=== PATIENT | female | born 1965 | race Caucasian/White ===

== ENCOUNTER 2018-01-06 10:38 | Emergency (ER) | payer OTHER ==
[2018-01-06 10:54] VITALS: BP 131/94
--- NOTE | 2018-01-06 11:13 | UC ---
Respiratory Complaint HPI - HPI Summary HPI Summary: Pt presents with c/o cough, wheezing and chest congestion X 3-4 days. Pt states that she "always gets bronchitis" and knows that she "needs an xray" Pt reports that she had bronchitis 1-2 months ago. - History of Current Complaint Chief Complaint: UCRespiratory Stated Complaint: CHEST CONGESTION, COUGH Time Seen by Provider: 01/06/18 11:08 Hx Obtained From: Patient Hx Last Menstrual Period: n/a ?: No Onset/Duration: Gradual Onset, Lasting Days, Still Present Timing: Constant Severity Initially: Mild Severity Currently: Mild Pain Intensity: 4 Character: Cough: Nonproductive Aggravating Factors: Exertion, Deep Breaths, Recumbent Position Alleviating Factors: Nothing Associated Signs And Symptoms: Positive: Wheezing, URI, Nasal Congestion - Risk Factors Pulmonary Embolism Risk Factors: Smoking Cardiac Risk Factors: Smoking Pseudomonas Risk Factors: Negative Tuberculosis Risk Factors: Smoking - Allergies/Home Medications Allergies/Adverse Reactions: Allergies Allergy/AdvReac Type Severity Reaction Status Date / Time codeine AdvReac Intermediate Vomiting Verified 01/06/18 10:55 Penicillins AdvReac Intermediate Nausea Verified 01/06/18 10:55 seasonal Allergy Congestion Uncoded 01/09/17 14:30 Home Medications: Home Medications Albuterol 2.5MG/3ML (0.083%)* [Ventolin 2.5 MG/3 ML NEB.PRAKASH*] 2.5 mg INH Q4H 09/18 [History Confirmed 01/06/18] PMH/Surg Hx/FS Hx/Imm Hx Previously Healthy: Yes Respiratory History: Bronchitis - Surgical History Surgical History: Yes Surgery Procedure, Year, and Place: APPENDECTOMY; 1983; CYST REMOVED FROM [facility]ARY , ; TUBAL LIGATION, 1989. double carpal tunnel repair 09/19/14 - Family History Known Family History: Positive: Cardiac Disease, Hypertension, Other - RA Negative: Diabetes, Respiratory Disease - Social History Occupation: Employed Full-time Alcohol Use: None Alcohol Amount: 6 PER MONTH Substance Use Type: Excessive Caffeine Substance Use Comment - Amount & Last Used: coffee 6 cups /day Smoking Status (MU): Heavy Every Day Tobacco Smoker Type: Cigarettes Amount Used/How Often: 1/2 PPD Length of Time of Smoking/Using Tobacco: 38 Years Have You Smoked in the Last Year: Yes Household Exposure Type: Cigarettes - Immunization History Most Recent Influenza Vaccination: no Vaccination Up to Date: No Review of Systems Constitutional: Fatigue Skin: Negative Eyes: Negative ENT: Negative Respiratory: Shortness Of Breath, Cough Cardiovascular: Negative Gastrointestinal: Negative Genitourinary: Negative Motor: Negative Neurovascular: Negative Musculoskeletal: Negative Neurological: Negative Psychological: Negative Is Patient Immunocompromised?: No All Other Systems Reviewed And Are Negative: Yes Physical Exam Triage Information Reviewed: Yes Appearance: Well-Appearing Vital Signs: Initial Vital Signs Temp 98.5 F 01/06/18 10:49 Pulse 78 01/06/18 10:49 Resp 18 01/06/18 10:49 BP 131/94 01/06/18 10:49 Pulse Ox 99 01/06/18 10:49 Vital Signs Reviewed: Yes Eye Exam: Normal ENT Exam: Normal ENT: Positive: Hearing grossly normal Dental Exam: Normal Neck exam: Normal Respiratory: Positive: Wheezing Cardiovascular Exam: Normal Musculoskeletal Exam: Normal Neurological Exam: Normal Psychological Exam: Normal Skin Exam: Normal UC Diagnostic Evaluation - Laboratory O2 Sat by Pulse Oximetry: 99 Respiratory Course/Dx - Course Course Of Treatment: I disucussed [facility] pt that bronchitis may be viral, pt insisted on antibiotics - Differential Dx/Diagnosis Differential Diagnosis/HQI/PQRI: Bronchitis, Other - URI Provider Diagnoses: Bronchitis Discharge - Sign-Out/Discharge Documenting (check all that apply): Patient Departure All imaging exams completed and their final reports reviewed: No Studies - Discharge Plan Condition: Stable Disposition: HOME Prescriptions: Azithromycin TAB* [Zithromax TAB (Z-FLORESITA) 250 mg #6 tabs] 2 tab PO .TODAY, THEN 1 DAILY #1 floresita predniSONE TAB* [Deltasone 20 MG TAB*] 20 mg PO DAILY #3 tab Patient Education Materials: Acute Bronchitis (ED) Referrals: Sonal Loving MD [Primary Care Provider] - If Needed Additional Instructions: Please continue to use the nebulizer and inhaler as directed in previous prescription. If your condition worsens, then please seek care at the closest emergency room. - Billing Disposition and Condition Condition: STABLE Disposition: Home
== END 2018-01-06 11:42 | disposition home or self-care (01) ==
LOC: UCCORT 10:38
DX: J40 Bronchitis, not specified as acute or chronic (principal); Z88.0 Allergy status to penicillin; Z88.1 Allergy status to other antibiotic agents; F17.210 Nicotine dependence, cigarettes, uncomplicated
CPT/HCPCS: 99212; G0463

== ENCOUNTER 2019-04-05 07:02 | Emergency (ER) | payer BC, OTHER ==
--- OUTSIDE RECORDS SUMMARY | 2019-04-05 07:10 | XMS REPORT | Summary of Care ---
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; [address] Lupus (HCC); [place], [place] [id number] [place] [address] Fibromyalgia, secondary [phone] Allergies Active Allergy Reactions Severity Noted Date Comments Environmental Respiratory Reaction 12/23/2013 Unsure of allergies Penicillins GI Reaction 12/02/2014 Upset stomach documented as of this encounter (statuses as of 03/12/2019) Medications Medication Sig Dispensed Refills Start End Date Status Date hydroxychloroquine Take 2 Tabs 60 Tab 2 Active (PLAQUENIL) 200 MG by mouth 5 Oral Tab DAILY. albuterol (PROVENTIL, 3 mL by 125 mg 5 Active VENTOLIN) (2.5 MG/3ML) Inhalation-SV 7 0.083% Inhalation Nebu N route EVERY SolnIndications: SIX HOURS Wheezing NEEDED (wheezing). RA ALLERGY RELIEF 180 take 1 tablet 30 Tab 3 Active MG Oral Tab daily 8 ibuprofen (MOTRIN) 600 take 1 tablet 30 Tab 1 Active MG Oral daily if 9 TabIndications: needed for Myalgia severe pain SPIRIVA RESPIMAT 2.5 inhale 2 4 g 11 03/19/201 Active MCG/ACT Inhalation puffs daily 9 Aero SolnIndications: Chronic obstructive pulmonary disease, unspecified COPD type (HCC) levothyroxine take 1 tablet 30 Tab 0 Active (SYNTHROID) 125 MCG by mouth once 9 Oral TabIndications: daily BEFORE Acquired BREAKFAST hypothyroidism fluticasone (FLONASE) instill 2 16 g 5 Active 50 MCG/ACT Nasal sprays IN 9 Suspension NOSE DAILY VENTOLIN HFA 108 (90 inhale 2 36 g 11 Active Base) MCG/ACT puffs every 4 9 Inhalation Aero hours if SolnIndications: needed for Chronic obstructive wheezing pulmonary disease, unspecified COPD type (HCC), Wheezing duloxetine (CYMBALTA) Take 1 Cap by 30 Cap 3 03/12/20 Discontinued 20 MG Oral CAPSULE mouth DAILY. 9 19 (Side Effect) ENTERIC COATED PARTICLESIndications: Fibromyalgia, secondary, Anxiety nicotine transdermal Place 1 Patch 30 Patch 5 03/12/20 Discontinued patch-daily (NICODERM onto skin 9 19 (Patient CQ) 7 MG/24HR DAILY. stopped the Transdermal PATCH 24 medication) HRIndications: Tobacco use documented as of this encounter (statuses as of 03/12/2019) Active Problems Problem Noted Date Fibromyalgia, secondary 04/13/2018 COPD (chronic obstructive pulmonary disease) 03/17/2017 Lentigo 08/04/2014 Smoking 08/04/2014 Tubular adenoma of colon 05/04/2014 Overview: repeat in 5 years Hypothyroidism DDD (degenerative disc disease), lumbar Overview: MRI 08/2013 Lupus Overview: Dr. Sofía Jaime documented as of this encounter (statuses as of 03/12/2019) Immunizations Name Administration Dates Next Due Influenza (IM) Preservative Free 12/25/2018, 04/15/2016, 02/12/2015 Influenza Vaccine Whole 02/05/2014 PNEUMOCOCCAL POLYSACCHARIDE VACCINE 12/25/2018, 05/29/2017 TDAP Vaccine 04/15/2016 documented as of this encounter Social History Tobacco Use Types Packs/Day Years Used Date Current Every Day Smoker 0.5 40 Smokeless Tobacco: Never Used Comments: weaning down, trying to quit Alcohol Use Drinks/Week oz/Week Comments No 0 Standard drinks or equivalent 0.0 Sex Assigned at Date Recorded Not on file Job Start Date Occupation Industry Not on file Not on file Not on file Travel History Travel Start Travel End No recent travel history available. documented as of this encounter Last Filed Vital Signs Vital Sign Reading Time Taken Comments Blood Pressure 140/76 03/12/2019 2:05 PM EST Pulse 82 03/12/2019 2:05 PM EST Temperature - - Respiratory Rate - - Oxygen Saturation 98% 03/12/2019 2:05 PM EST Inhaled Oxygen Concentration - - Weight 68.5 kg (151 lb) 03/12/2019 2:05 PM EST Height 157.5 cm (5' 2") 03/12/2019 2:05 PM EST Body Mass Index 27.62 03/12/2019 2:05 PM EST documented in this encounter Patient Instructions Patient InstructionsSonal Loving MD - 03/12/2019 2:00 PM ESTGlad you are doing ok at this time. Good job quitting smoking. You can stay off Duloxetine. Follow up next summer for a physical exam Stay healthy documented in this encounter Progress Notes Sonal Loving MD - 03/12/2019 2:00 PM EST Nursing Notes: Carey Lizama LPN 03/12/2019 2:15 PM Signed Chief Complaint Patient presents with Check Up Youth Teacher: [facility] Endocrinogist: Dr Sandoval--appointment 03/25/19 Pulmonolotist: Dr Wood's BREAKFAST AND ROOM ATTENDANT, Tae--appointment next week, plans CT Lyme doctor: Tae JAMES--has upcoming appointment. PATIENT: Keesha Kay : 1965 DATE OF SERVICE: 03/12/2019 SUBJECTIVE: Keesha Kay is a 53-y.o. female who presents for follow up of of anxiety. She had to finally stop duloxetine 3 weeks ago for diarrhea and abdominal pain. She feels ok at this time and does not want to try anything new. Her stressors are her son, who has not been around lately, and her who is newly oxygen dependent. She stopped smoking since last visit. Last seen 02/08/19. Per last visit: We had to lower her dose of Duloxetine last visit due to diarrhea. I previously prescribed Duloxetine. She quit smoking for 6 months. Her anxiety picked up 3 months ago. She started smoking again 1 week prior, 1ppd. Plan last visit: Patient liked duloxetine, except for the diarrhea. She would like to try a lower dose rather than anew med. She is here for recheck of this. She would also like the lowest dose nicoderm patch to quit smoking again. We called to obtain her last note and laboratory tests from Dr Sandoval. She sees Dr Sandoval for her thyroid. He gave her a med for thyroid and anxiety, but stopped it. No help. Last vist was within 3 months She complained last visit of psychomotor agitation. Onset was approximately several months ago, gradually worsening since that time. She denies current suicidal and homicidal plan or intent. Possible organic causes contributing are: Lupus, prior anxiety, fibromyalgia. , thyroid Previous treatment includes Bupropion Hydrochloride/ Wellbutrin, Escitalopram Oxalate/ Lexapro. She complains of the following side effects from the treatment: Diarrhea. Her laboratory tests in September with Dr Sandoval revealed normal TSH and FT4, negative ABRAM, normal CMP Lab Results Component Value Date TSH 5.02 (H) 04/13/2018 Lab Results Component Value Date NA 141 04/13/2018 K 4.1 04/13/2018 CL 107 04/13/2018 CO2 28 04/13/2018 GLUCOSE 83 04/13/2018 BUN 12 04/13/2018 CREATININE 0.9 04/13/2018 CALCIUM 10.0 04/13/2018 EGFR >60 04/13/2018 Lab Results Component Value Date WBC 5.6 04/15/2016 HGB 15.0 04/15/2016 HCT 44.7 04/15/2016 PLAT 230 04/15/2016 Past Medical History: Diagnosis Date Carpal tunnel syndrome Dr Damon COPD (chronic obstructive pulmonary disease) ([facility]) 03/17/2017 DDD (degenerative disc disease), lumbar MRI 08/2013 Environmental allergies fall, winter Hypothyroidism Lupus ([facility]) 2012 Dr. Sofía Jaime Lupus ([facility]) Dr. 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 fluticasone (FLONASE) 50 MCG/ACT Nasal Suspension instill 2 sprays IN NOSE DAILY hydroxychloroquine (PLAQUENIL) 200 MG Oral Tab Take 2 Tabs by mouth DAILY. ibuprofen (MOTRIN) 600 MG Oral Tab take 1 tablet daily if needed for severe pain levothyroxine (SYNTHROID) 125 MCG Oral Tab take 1 tablet by mouth once daily BEFORE BREAKFAST RA ALLERGY RELIEF 180 MG Oral Tab take 1 tablet daily SPIRIVA RESPIMAT 2.5 MCG/ACT Inhalation Aero Soln inhale 2 puffs daily VENTOLIN HFA 108 (90 Base) MCG/ACT Inhalation Aero Soln inhale 2 puffs every 4 hours if needed for wheezing No current facility-administered medications for this visit. Allergies Allergen Reactions Environmental Respiratory Reaction Unsure of allergies Penicillins GI Reaction Upset stomach Social History Socioeconomic History Marital status: Spouse name: Not on file Number of children: Not on file Years of education: Not on file Highest education level: Not on file Occupational History Not on file Social Needs Financial resource strain: Not on file Food insecurity: Worry: Not on file Inability: Not on file Transportation needs: Medical: Not on file Non-medical: Not on file Tobacco Use Smoking status: Current Every Day Smoker Packs/day: 0.50 Years: 40.00 Pack years: 20.00 Smokeless tobacco: Never Used Tobacco comment: weaning down, trying to quit Substance and Sexual Activity Alcohol use: No Alcohol/week: 0.0 standard drinks Drug use: No Sexual activity: Never Lifestyle Physical activity: Days per week: Not on file Minutes per session: Not on file Stress: Not on file Relationships Social connections: Talks on phone: Not on file Gets together: Not on file Attends mormon service: Not on file Active member of club or organization: Not on file Attends meetings of clubs or organizations: Not on file Relationship status: Not on file Intimate partner violence: Fear of current or ex partner: Not on file Emotionally abused: Not on file Physically abused: Not on file Forced sexual activity: Not on file Other Topics Concern Back Care Not Asked Bike Helmet Not Asked Blood Transfusions Not Asked Caffeine Concern Not Asked Exercise Not Asked Hobby Hazards Not Asked International Travel Not Asked Service Not Asked Occupational Exposure Not Asked Seat Belt Not Asked Self-Exams Not Asked Sleep Concern Not Asked Special Diet Not Asked Stress Concern Not Asked Weight Concern Not Asked Social History Narrative 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 REVIEW OF SYSTEMS: CONSTITUTIONAL: negative for fevers and chills. CARDIOVASCULAR: negative for chest pain. Respiratory: denies cough, shortness of breath GASTROINTESTINAL: negative for abdominal pain and no diarrhea now. improved anxiety. No suicidal ideation OBJECTIVE: BP 140/76 (BP Location: Left arm, Patient Position: Sitting) | Pulse 82 | Ht 5 ' 2" (1.575 m) | Wt151 lb (68.5 kg) | SpO2 98% | BMI 27.62 kg/m Physical Examination: General appearance - alert, well appearing, and in no distress Mental status - alert, oriented to person, place, and time, normal mood, behavior, speech, dress, motor activity, and thought processes Eyes - pupils equal sclera anicteric Neck - supple, no cervical or supraclavicular adenopathy, carotids upstroke normal bilaterally, no bruits, thyroid exam: thyroid is normal in size without nodules or tenderness, no neck masses palpated. Chest/Lungs - clear to auscultation, no wheezes, rales or rhonchi, symmetric air entry, good aeration Heart - normal rate, regular rhythm, normal S1, S2, no murmurs, rubs, clicks or gallops Abdomen - soft, non tender on palpation, nondistended, no masses or hepatosplenomegaly, bowel soundsnormal, normal to percussion, no guarding or rebound. No costervertebral angle tenderness Neurological - alert, oriented, normal speech, no gross focal findings or movement disorder noted Extremities - dorsalis pedis pulses normal, no pedal edema, no clubbing or cyanosis ASSESSMENT/ PLAN: ICD-9-CM ICD-10-CM 1. Anxiety 300.00 F41.9 2. 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 Lupus (HCC) 710.0 M32.9 4. Fibromyalgia, secondary 729.1 M79.7 Patient Instructions Glad you are doing ok at this time. Good job quitting smoking. You can stay off Duloxetine. Follow up next summer for a physical exam Stay healthy Author: Sonal Loving MD 03/12/2019 17:05 documented in this encounter Plan of Treatment Health Maintenance Due Date Last Done Comments ZOSTER IMMUNIZATION SERIES 2014 (1 of 2) MAMMOGRAM (SCREENING) 10/16/2018 10/16/2017, 03/15/2016, 09/12/2014, Additional history exists DIABETES SCREENING 04/13/2019 04/13/2018, 12/05/2017, 07/28/2015, Additional history exists Colonoscopy 06/10/2019 06/09/2014, 06/09/2014, 06/09/2014 DEPRESSION SCREENING 02/09/2020 02/08/2019 PAP SMEAR 06/26/2020 06/26/2017, 06/21/2016, 06/21/2016, Additional history exists LIPID DISORDER SCREENING 12/05/2022 12/05/2017, 10/02/2014 INFLUENZA VACCINE Completed 12/25/2018, 04/15/2016, 02/12/2015, Additional history exists PNEUMOCOCCAL 0-64 YRS Completed 12/25/2018, 05/29/2017 HPV IMMUNIZATION SERIES Aged Out No longer eligible based on patient's age to complete this topic MENINGOCOCCAL VACCINE IMM Aged Out No longer eligible based on patient's age to complete this topic documented as of this encounter Goals Goal Patient Goal Associated Recent Patient-Stated? Author Type Problems Progress Smoking COPD No Pro Loving MD Note: This is an individualized treatment (COPD) goal for Keesha Rahul: Quit smoking immediately! Your provider has information and resources that may help you to quit. Lifestyle - Current Smoker Lifestyle Smoking No Marely Mosley MD Note: Smoking Cessation Plan Discussed smoking cessation with patient. Patient readiness to quit:yes Discussed smoking cessation plan according to AHRQ guidelines:counseled patient on the risks of tobacco use and advised patient to quit and offered support My Quit Plan: My quit date is set for Notify my friends, family, and co-workers about decision to quit. Will ask for their support and understanding Remove tobacco products from my environment. I will ask people not to smoke around me or in my home. I will anticipate challenges at the beginning and will try not to be discouraged. To remember the benefits of quitting such as improved health, feeling better about myself, saving money, etc. Reducing stressors and avoiding triggers are essential keys to my success Finding ways to distract myself when I have the urge to smoke such as taking a walk, reading, playing a board game, putting together a puzzle, etc. Taking medications as my healthcare provider has advised to help alleviate the urge to smoke. If I am unable to take the medication, I will discuss further with my healthcare provider. Recognize reasons for relapse in my past attempts. What did and did not work for me Consider connecting with group, individual, or telephone counseling Keep immunizations current Lifestyle No Sonal Loving MD Note: This is an individualized lifestyle goal for Keesha Kay: Please be sure to keep up-to-date on recommended immunizations. For example, this would include a yearly influenza vaccine. Immunization status can be seen by looking at the Health Maintenance sections of your [facility], Plan of Care, and any After Visit Summaries. Take all prescribed medications as Self-management No Sonal Loving MD directed Note: This is an individualized self-management goal for Keesha Kay: Please take all prescribed medications as directed. 1. Do not skip doses. If you cannot afford your medications, talk with your doctor. 2. Use a pill reminder system such as a pill box if needed. Your pharmacist can help you with this. 3. Contact your Pharmacy 5 days before your medication runs out. If you cannot take your medications for any reasons, talk with your doctor. 4. Please bring all of your medication bottles and inhalers (or a list of all your medications/inhalers) with you to every visit. Potential barriers to meeting all of your care plan goals will continue to be addressed on an ongoing basis. 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
--- OUTSIDE RECORDS SUMMARY | 2019-04-05 07:10 | XMS REPORT | Summary of Care ---
:1965 Author Organization [facility] Address [address] [place] [address] Care Team Providers Name Role Phone Sonal Loving MD Primary Care Provider Reason for Visit Reason Comments Follow-up Encounter Details Date Type Department Care Team Description 03/14/2019 Office Visit [facility] Rheumatology Fe Gore MD Positive ABRAM (antinuclear antibody) (Primary Dx); [address] Fibromyalgia; [place] [address] [facility] Floor High risk medication use [phone] [place] [address] Allergies No Known Allergiesdocumented as of this encounter (statuses as of 03/14/2019) Medications Medication Sig Dispensed Refills Start Date End Date Status RA ALLERGY RELIEF 180 MG 0 09/28/2015 Active tablet levothyroxine Take 100 mcg by 0 04/15/2016 Active (SYNTHROID, LEVOTHROID) mouth 100 MCG tablet albuterol (PROVENTIL) Take by 0 Active (2.5 MG/3ML) 0.083% nebulization nebulizer solution daily SPIRIVA RESPIMAT 2.5 1 09/27/2017 Active MCG/ACT AERS inhalation spray ibuprofen (ADVIL,MOTRIN) Take 600 mg by 0 05/29/2017 Active 600 MG tablet mouth methotrexate 2.5 MG take 4 tablets 16 tablet 5 04/05/2018 Active tabletIndications: every week Fibromyalgia hydroxychloroquine take 1 tablet by 60 tablet 11 07/16/2018 Active (PLAQUENIL) 200 MG mouth twice a day tabletIndications: Connective tissue disease hydroxychloroquine Take 1 tablet by 60 tablet 11 09/14/2018 Active (PLAQUENIL) 200 MG mouth Two Times 0 tablet Daily documented as of this encounter (statuses as of 03/14/2019) Active Problems Problem Noted Date High risk medication use 05/17/2013 Fibromyalgia 05/17/2013 Joint pain 04/27/2012 Positive ABRAM (antinuclear antibody) 03/22/2012 Hypothyroidism documented as of this encounter (statuses as of 03/14/2019) Social History Tobacco Use Types Packs/Day Years Used Date Current Every Day Smoker Cigarettes 1 30 Smokeless Tobacco: Never Used Alcohol Use Drinks/Week oz/Week Comments No Sex Assigned at Date Recorded Not on file Job Start Date Occupation Industry Not on file Not on file Not on file Travel History Travel Start Travel End No recent travel history available. documented as of this encounter Last Filed Vital Signs Vital Sign Reading Time Taken Comments Blood Pressure 111/67 03/14/2019 12:53 PM EST Pulse 82 03/14/2019 12:53 PM EST Temperature 36.9 03/14/2019 12:53 PM EST C (98.5 F) Respiratory Rate 18 03/14/2019 12:53 PM EST Oxygen Saturation 98% 03/14/2019 12:53 PM EST Inhaled Oxygen Concentration - - Weight 69.9 kg (154 lb 3.2 oz) 03/14/2019 12:53 PM EST Height - - Body Mass Index 28.2 09/14/2018 12:24 PM EDT documented in this encounter Progress Notes Fe Gore MD - 03/14/2019 1:00 PM EST Subjective: Patient ID: Keesha Kay is a 53 y.o. female. HPI This is a 53-year-old white female with history of hypothyroidism, positive ABRAM , undifferentiated connective tissue disease, COPD, smoker came in for follow up. I first time saw her on 03/22/2012, at which time she was referred by Dr. Sandhu for positive ABRAM Homo 1:160, nucleolar pattern 1:160. The patient was diagnosed with hyperthyroidism many years ago and had radiation therapy and became hypothyroid, on levothyroxine 100 mcg daily. She always has fatigue. For the past few months or so, she noticed that the fingers and toes are tingling and radiating up to elbows and knee levels. She does have difficulty holding heavy objects and dropping things. She follow up with neurologist Dr. Myrna Gusman. She was diagnosed with carpal tunnel syndrome. She had 1 very small skin rash, about 2-3 mm, on the anterior left shoulder. She said the rash has been there for many years. They are red, but not itchy and painful. Denies photosensitivity, oral ulcers, or alopecia. About 1 month ago, she had 1 episode of chest pain lasting only 2-3 minutes and resolved. Because she is a chronic smoker, she does have chronic cough and shortness of breath. Denies abdominal pain, nausea, vomiting, diarrhea, constipation. No dysuria or hematuria. For the past 2 years or so,she had only 2 menstrual periods and she does have hot flashes. Denies Raynaud's, dry mouth, dry eyes. No chronic headaches. Her sleep is disturbed because the hands and legs are achy. Denies depression, anxiety, psychiatric problems. Denies family history of lupus or other autoimmune disease. On 04/26/2012, she was almost tearing in the office. She has a lot of stress on going. Her isdisabled and out of work. Her daughter is in and out of hospital with illness. She drinks about 8 cups coffee everyday. She barely had good night sleep. However, she denies depression and refused to see psychiatry or therapist. She said because of her high level of stress, she is not able to quit smoking. I had long discussion with the patient. I recommended Naproxen as needed for joints pain and Plaquenil 200mg bid. Also recommend her to neurologist to rule out neuropathy. On 06/14/2012, she said she had one episode of confusion after took 2 doses of Naproxen. She was not sure where she suppose to drive. She was scared and discontinued. I am not sure it was the side effect of Naproxen but agreed to hold off the medication. She did started Plaquenil 200mg bid and tolerated OK. Not much improvement yet. She has appointment with Neurologist in a few weeks. She might need EMG/NCS and/or MRI of brain. But I defer the decision to neurologist. She was cutting down the coffee intake to 2 cups a day. Her sleeps were little bit better. She had history of right side abdominal pain in 2011 which lasted about 4-5 months. She went to hospital and had all work up but there was no clear diagnosis to explain her abdominal pain. No headache. Her tingling of arms were unchanged. No skin rash, oral ulcer, chest pain, alopecia. On 09/13/2012, she said her symptoms were much better. Less fatigue. She could get of bed in the morning and go to work. She saw neurologist Dr. Myrna Gusman one month ago and had EMG which suspect carpal tunnel syndrome. MRI of neck suspected bulging disc at C4-C5. MRI of marvin showed a cyst but not concerning according to Dr. Kee. About one week ago, she had feet numbness. She will go see Dr. Gusman again. She had right forearm hyperpigmentation for 20 years or more. No raised, painful or itchy. She just noticed another hyperpigmentation rash which was quarter size on right breast, not painful or itchy. It looked like morphea to me. She did see director pharmacy services but did not have clear diagnosis. On 03/15/2013, she came in for follow up. She was doing quite well during the summer. However, since January 2013 she started noticing pain mainly on the right buttock and radiating down to the leg and the knees and toes. The pain could be everyday and there was tenderness on the right side buttock.I suspected pisiform syndrome with sciatic pain. I printed out home exercise. Other than that she also noticed the right forearm hyperpigmentation seemed to get worse. She had some skin rashes on and off which was itchy and her skin was dry. No oral ulcers. On 04/18/2013, she came in for urgent visit for diffused body pain since last visit. She was in tearsin the office. She said her body hurt all over the place. There were fibromyalgia tenderness . She continued smoking cigarettes. I suggested to quit smoking. Checked vitamin D level. Suspected connective tissue disease flare up. Try low dose prednisone 10mg bid and taper to half dose every week as tolerated. Continue Plaquenil 200mg bid. She admitted stressful situation at home. On 05/17/2013, she came in for follow up. She still has diffuse body pain but seems less fibromyalgiatender points on exam. She tried prednisone 10 mg, but she developed anxiety, angry and insomnia. She could not tolerate and had to stop it. Vitamin D level was normal. She continued the Plaquenil 200 mg twice a day. I discussed with her about her situation. She might have secondary fibromyalgiadue to her connective tissue disease. Since she is not able to tolerate even low-dose prednisone, we will try different approach. Discussed about the methotrexate and gabapentin. We will try gabapentin 100 mg at bedtime first. Side effects explained in detail. She also developed right upper quadrant abdominal pain which is sharp, persistent / not associated with food, breathing or bowel movement. She had similar episodes in the past and had extensive GI workups which were all unremarkable. On 09/12/2013, she came in for follow up. She had skin biopsy of right forearm hyperpigment skin lesion which was nonspecific lesion according to Dr. Sandhu. She was also referred to physical therapy for right buttock pain and leg pain. Suspected pisiformis syndrome. Legs numbness was better but she still have a lot of diffused body pain, right buttock pain. She discontinued Gabapentin and Meloxicam.She wanted to try ibuprofen 800mg for pain, which I E-prescribed. Continued Plaquenil 200mg bid. On 04/18/2014, she came in for follow up. She continued to have back pain and GI upset. Her right forearm hyperpigmentation which was biopsy by Dr. Sandhu. However she switched PCP. The biopsy report was still pending. She had EGD and was found to have small intestine was enlarged. Otherwise she tolerated Plaquenil 200mg bid. On 10/30/2014, she came in for follow up. Right arm skin biopsy showed hyperpigmentation but I do nothave those report. She switched primary care doctor to Dr. Marely Mosley. Just had labs done acouple of weeks ago. She felt fatigue, but not much of joints pain or body pain. She just had both wrists carpal tunnel release surgery about 6 weeks ago. recovered well. Continued Plaquenil 200mg bid. On 10/01/2015, she came in for follow up. Overall she felt okay with Plaquenil 200mg bid. Still had sore of hands. Other joints were normal. Still have hyperpigmentation of right forearm. She had palpation of heart. She was recommended Lexapro. On 04/07/2016, she came in for follow up. She was doing well on Plaquenil 200mg bid. Still have sore and numbness of hands and feet. This seems often happened during the winter time. No Raynaud's. She had neurological workup in the past but no significant findings. Since 12/2015, she felt palpitation. Had cardiac workup which was normal. Then she tried anti-anxiety medications which had side effects. She fatigue, anxiety. 3 weeks ago, she was found to have too high dose thyroid medications. Dosage was decreased but she was still not feel better. On 10/06/2016, the patient came in for follow up. Overall, the patient was really doing well on Plaquenil 200 mg twice a day. She was wondering whether she can taper down the dose. I suggested they could try 200 mg daily during the summertime. She was referred to an footwear machinery instructor for hypothyroidism. After the levothyroxine decreased to 100 mcg daily, she felt much better. Not anxious and no agitation. Overall, she was happy with her current status. No new skin rash except the right forearm hyperpigmentation unchanged. No arthritis or ulcers. On 04/13/2017, the patient came in for follow up. The patient continued to have diffuse body pain andtenderness and joint pains in and hands and feet. For the past half year, she had bronchitis 7-8 times, often had cough, shortness of breath, and wheezing. She was told she had severe COPD. She is and active smoker, but was also was exposed to chemicals for 27 years. She has not be referred to a metal spinner yet, has not done a CT of the chest and pulmonary function test. She has followed up with thyroid doctor, footwear machinery instructor, who is leaving the practice. She needs to find a new one. The last time, she was told the thyroid function was normal. She continues hydroxychloroquine 200 mg twice a day. On 10/12/2017, the patient came in for follow up. She continues hydroxychloroquine 200 mg twice a day. But she continued to have fatigue, diffused joints pain at toes, knees, fingers, arms. She was upset. Discussed about DMARDs and biologics. She agreed with Methotrexate 10mg weekly and folic acid 1mg daily. On 03/09/2018, the patient came in for follow up. She tried Methotrexate 10mg weekly and folic acid 1mg daily for 6 months, she did not notice improvement. In fact, she felt more fatigue, dry skin. Shealso had increased SOB on exertions. She had COPD and also smoker. She had difficulty quitting smoking. She was going to see her PCP office soon for that. Lab in 10/2017, free T4 normal but TSH mild elevated 5.98. She was on Levothyroxine 110mcg daily. She might need higher dose of thyroid medication or see footwear machinery instructor because her previous footwear machinery instructor left. She will discuss with her PCP office. She continues hydroxychloroquine 200 mg twice a day and ibuprofen 800mg as needed. No synovitis onexam. On 09/14/2018, the patient came in for follow up. Repeated TSH 12.8 in 03/2018. I called her. Suggested to increase Levothyroxine to 125mcg. She called her PCP and got that. After 2 days, she felt much better. She saw new footwear machinery instructor who agreed with that. Summer time she felt good. I suggested to try Plaquenil 400mg/200mg every other day based on her body weight. She is going to see eye doctor in the summer. She quit smoking on 08/07/2018, gained some weight. Discussed about Paleo diet, exercise and lose weight. On 03/14/2019, the patient came in for follow up. She overall stable on Plaquenil 400mg/200mg every other day. After she quit smoke in 08/2018 and gained 35-40lbs. She continued to follow up with footwear machinery instructor. Review of Systems Per HPI. Review of complete ROS is negative. Past Medical History: Diagnosis Date Hypothyroidism Past Surgical History: Procedure Laterality Date APPENDECTOMY Family History Problem Relation Age of Onset Heart failure Mother Social History Tobacco Use Smoking status: Current Every Day Smoker Packs/day: 1.00 Years: 30.00 Pack years: 30.00 Types: Cigarettes Smokeless tobacco: Never Used Substance Use Topics Alcohol use: No Drug use: Yes Comment: ramo No Known Allergies Current Outpatient Medications Medication Sig Dispense Refill albuterol (PROVENTIL) (2.5 MG/3ML) 0.083% nebulizer solution Take by nebulization daily hydroxychloroquine (PLAQUENIL) 200 MG tablet take 1 tablet by mouth twice a day 60 tablet 11 hydroxychloroquine (PLAQUENIL) 200 MG tablet Take 1 tablet by mouth Two Times Daily 60 [id number] ibuprofen (ADVIL,MOTRIN) 600 MG tablet Take 600 mg by mouth levothyroxine (SYNTHROID, LEVOTHROID) 100 MCG tablet Take 100 mcg by mouth methotrexate 2.5 MG tablet take 4 tablets every week 16 tablet 5 RA ALLERGY RELIEF 180 MG tablet SPIRIVA RESPIMAT 2.5 MCG/ACT AERS inhalation spray 1 No current facility-administered medications for this visit. Objective: Visit Vitals BP 111/67 Pulse 82 Temp 36.9 C (98.5 F) Resp 18 Wt 69.9 kg (154 lb 3.2 oz) SpO2 98% BMI 28.20 kg/m HEENT: no facial erythema, hearing grossly intact. Chest exam: clear to auscultation, no wheezing orcrackles. Good airway entry. Heart exam: regular rate and rhythm, S1, S2 present, no murmur, rub, gallop. Extremities no cyanosis , clubbing or edema. Neuro exam: AAO*3, no focal deficits. Muscle strength preserved. Skin exam: hyperpigmentation on right fore arm, chest, leg. Joint exam: No active synovitis in both upper and lower extremity joints. 0/18 fibromyalgia tender points. Normal gait and stance. Labs from February 17, 2012; antinuclear antibody homogeneous pattern 1-160, nucleolar pattern 1:160. TSH is 0.8, vitamin B12 459, folic acid 18.2, vitamin D 25 hydroxylase 39.8, troponin less than 0.02. CK-MB 1.6, otherwise CMC and CBC with differentialare normal. Labs from 03/22/2012 showed ABRAM Homo 1:160, Nucleolar 1:160, C3 113, C4 24, Thyroid peroxidase antibody 9, TSH 0.78. CPK 112, ESR 8, CMP, CBC, UA were all normal. Office Visit on 03/09/2018 Component Date Value Ref Range Status Homogeneous Pattern 03/09/2018 <50 0 - 49 1/dil Final Speckled Pattern 03/09/2018 250* 0 - 49 1/dil Final Peripheral Pattern 03/09/2018 <50 0 - 49 1/dil Final ABRAM,Nucleolar pattern 03/09/2018 1,250* 0 - 49 1/dil Final SSA Autoantibody 03/09/2018 5 0 - 99 [AU]/mL Final SSB Autoantibody 03/09/2018 12 0 - 99 [AU]/mL Final Beatty Autoantibody 03/09/2018 12 0 - 99 [AU]/mL Final INSURANCE VERIFIER Autoantibody 03/09/2018 17 0 - 99 U/ML Final SCL-70 Autoantibody 03/09/2018 6 0 - 99 [AU]/mL Final JEROME-1 Autoantibody 03/09/2018 7 0 - 99 [AU]/mL Final Double Stranded DNA Ab 03/09/2018 8 0 - 99 [IU]/mL Final Centromere antibody 03/09/2018 6 0 - 99 [AU]/mL Final Histone antibody 03/09/2018 6 0 - 99 [AU]/mL Final White Blood Cell 03/09/2018 4.6 4 - 10 10*3/uL Final Red Blood Cell 03/09/2018 4.34 4.1 - 5.3 10*6/uL Final Hemoglobin 03/09/2018 13.8 11.5 - 15.5 g/dL Final Hematocrit 03/09/2018 41.1 36 - 45 % Final Mean Cell Volume 03/09/2018 94.8 80 - 96 fL Final Mean Cell Hemoglobin 03/09/2018 31.9 27 - 33 pg Final Mean Cell Hgb Conc 03/09/2018 33.7 32.0 - 36.0 g/dL Final Red Cell Dist Width 03/09/2018 15.0* 11.5 - 14.5 % Final Platelet Count 03/09/2018 242 150 - 400 10*3/uL Final Differential Type 03/09/2018 Automated Diff Final Neutrophil 03/09/2018 62 % Final Lymphocyte 03/09/2018 27 % Final Monocyte 03/09/2018 9 % Final Eosinophil 03/09/2018 1 % Final Basophil 03/09/2018 1 % Final Abs Neutrophil 03/09/2018 2.85 1.8 - 7.0 10*3/uL Final Abs Lymphocyte 03/09/2018 1.24 1.2 - 4.0 10*3/uL Final Abs Monocyte 03/09/2018 0.42 0 - 0.8 10*3/uL Final Abs Eosinophil 03/09/2018 0.05 0 - 0.5 10*3/uL Final Abs Basophil 03/09/2018 0.04 0 - 0.2 10*3/uL Final Nucleated Red Blood Cells 03/09/2018 0 0 - 0 /100 Final Sed Rate - ESR 03/09/2018 7 <30 mm/hr Final Albumin 03/09/2018 4.5 3.5 - 5.2 g/dL Final Bilirubin, Total 03/09/2018 0.5 <1.2 mg/dL Final Calcium 03/09/2018 9.5 8.6 - 10.0 mg/dL Final Chloride 03/09/2018 103 98 - 107 mmol/L Final Creatinine 03/09/2018 1.04* 0.4 - 1.0 mg/dL Final Glucose 03/09/2018 68* 70 - 140 mg/dL Final Alkaline Phosphatase 03/09/2018 49 35 - 104 U/L Final Potassium 03/09/2018 4.5 3.5 - 5.1 mmol/L Final Total Protein 03/09/2018 6.5 6.4 - 8.3 g/dL Final Sodium 03/09/2018 140 136 - 145 mmol/L Final AST/SGO 03/09/2018 22 <32 U/L Final Blood Urea Nitrogen 03/09/2018 17 6 - 20 mg/dL Final Osmolality, Markie 03/09/2018 290 275 - 300 mosm/kg Final BUN/Cre Ratio 03/09/2018 16 Final Bicarbonate 03/09/2018 26 22 - 29 mmol/L Final ALT/SGP 03/09/2018 16 <33 U/L Final Anion Gap 03/09/2018 11 8 - 15 mmol/L Final A/G Ratio 03/09/2018 2.3 Final GFR Non 2008 CDK-* 03/09/2018 60* >60 mL/min/1.73m2 Final GFR 2008 CKD-EPI 03/09/2018 70 >60 mL/min/1.73m2 Final TSH 03/09/2018 12.380* 0.270 - 4.200 u[IU]/mL Final Assessment: 1. Positive ABRAM with fatigue, skin rash, neuropathy, arthralgia, suspect undifferentiated connectivetissue disease. A mild form of lupus. Flare up at winter time. Tolerated Plaquenil 200mg bid but could not tolerate Prednisone 10mg/day. Not controlled. Started MTX 10mg weekly in 10/2017. Discontinuedin 2017. Not effective. 2. Hypothyroidism. Treated. Levo 125mcg. 3. Tobacco use with chronic cough. 4. Hands and feet tingling and numbness. Follow up with Dr. Myrna Gusman, EMG suspect carpal tunnelsyndrome. S/P both wrists surgery in 09/2014. 5. Insomnia. Stress related. 6. One episode of confusion after 2 doses of Naproxen. ?side effect of medication. Use as needed only. 7. Right forearm and breast hyperpigmentation rash and right forearm. Suspect morphea. Pending skin biopsy report. 8. MRI of cervical spine showed bulging disc at C4-C5. Mild DJD but not symptomatic. 9. Right middle buttock pain and tenderness, radiating to right leg. Suspected piriformis syndrome with sciatic pain. Less symptomatic with PT. 10. Secondary fibromyalgia. Plan: - Keesha was seen today for follow-up. Diagnoses and all orders for this visit: Positive ABRAM (antinuclear antibody) - ABRAM; Future - ABRAM Fibromyalgia High risk medication use - Continue hydroxychloroquine 200mg/400mg every other day. Need yearly pick pulling machine operator exam to monitor retinal toxicity. Side effect explained. - Ibuprofen 800mg prn for joints pain. - discontinue methotrexate. Not effective. - she might need higher dose of thyroid medications or see new footwear machinery instructor. - Activities as tolerated. - Diet: Paleo diet ( no sugar, no diary, low carb diet) , more greens/vegetables , adequate hydration. - Encouraged to maintain good sleep hygiene. - Continue other medications as prescribed by PCP and other specialist. - RV in 6 months; above findings, analysis and plan were all discussed with the patient and questions were answered as much as possible. documented in this encounter Plan of Treatment Name Type Priority Associated Diagnoses Order Schedule ABRAM Lab Routine Positive ABRAM (antinuclear 1 Occurrences starting 03/14/2019 antibody) until 09/14/2019 Health Maintenance Due Date Last Done Comments Hepatitis C Screening (B. 1965 [id number]) MMR Vaccines (1 of 1 - Standard 1965 series) Varicella Vaccines (1 of 2 - 1965 2-dose childhood series) Pneumococcal Vaccine: Pediatrics 1970 (0 to 5 Years) and At-Risk Patients (6 to 64 Years) (1 of 1 - PPSV23) HIV Screening 1977 Cervical Cancer Screening 5 years 1985 Breast Cancer Screening 2 years 2014 Colon Cancer Screening 10 yrs 2014 DTaP,Tdap,and Td Vaccines (2 - Td) 05/13/2016 04/15/2016 Influenza Vaccine 01/01/2019 Pneumococcal Vaccine: 65+ Years (1 2029 of 2 - PCV13) HIB Vaccines Aged Out No longer eligible based on patient's age to complete this topic Hepatitis A Vaccines Aged Out No longer eligible based on patient's age to complete this topic Hepatitis B Vaccines Aged Out No longer eligible based on patient's age to complete this topic IPV Vaccines Aged Out No longer eligible based on patient's age to complete this topic documented as of this encounter Results Not on filedocumented in this encounter Visit Diagnoses Diagnosis Positive ABRAM (antinuclear antibody) - Primary Other and unspecified nonspecific immunological findings Fibromyalgia Mylagia and myositis, unspecified High risk medication use Encounter for long-term (current) use of other medications documented in this encounter
--- OUTSIDE RECORDS SUMMARY | 2019-04-05 07:10 | XMS REPORT | Summary of Care ---
:1965 Author Organization [facility] Address [address] [facility] [place] [address] Care Team Providers Name Role Phone Sonal Loving MD Primary Care Provider Reason for Visit Reason Comments Anxiety anxiety getting worse Nicotine Dependence wants to do patch Encounter Details Date Type Department Care Team Description 02/08/2019 Office Visit [facility] Consuelo Loving (Primary Dx); Practice Sonal Camacho MD Fibromyalgia, secondary; [address] [place] [address] Stress; [place], [place] [id number] [place] [id number] Tobacco use [phone] Allergies Active Allergy Reactions Severity Noted Date Comments Environmental Respiratory Reaction 12/23/2013 Unsure of allergies Penicillins GI Reaction 12/02/2014 Upset stomach documented as of this encounter (statuses as of 02/08/2019) Medications Medication Sig Dispensed Refills Start End [...] RESPIMAT 2.5 inhale 2 4 g 11 Active MCG/ACT Inhalation puffs daily 9 Aero [...] Take 1 Cap by 30 Cap 3 Active 20 MG Oral CAPSULE mouth DAILY. 9 ENTERIC COATED PARTICLESIndications: Fibromyalgia, secondary, Anxiety nicotine transdermal Place 1 Patch 30 Patch 5 Active patch-daily (NICODERM onto skin 9 CQ) 7 MG/24HR DAILY. Transdermal PATCH 24 HRIndications: Tobacco use duloxetine (CYMBALTA) Take 1 Cap by 30 Cap 5 02/09/20 Discontinued 30 MG Oral CAPSULE mouth DAILY. 9 19 (Side Effect) ENTERIC COATED PARTICLESIndications: Fibromyalgia, secondary, Stress documented as of this encounter (statuses as of 02/08/2019) Active Problems Problem Noted Date Fibromyalgia, secondary 04/13/2018 COPD (chronic obstructive pulmonary disease) 03/17/2017 Lentigo 08/04/2014 Smoking 08/04/2014 Tubular adenoma of colon 05/04/2014 Overview: repeat in 5 years Hypothyroidism DDD (degenerative disc disease), lumbar Overview: MRI 08/2013 Lupus Overview: Dr. Sofía Jaime documented as of this encounter (statuses as of 02/08/2019) Immunizations Name Administration Dates Next Due Influenza [...] Sign Reading Time Taken Comments Blood Pressure 110/68 02/08/2019 1:34 PM EST Pulse 98 02/08/2019 1:34 PM EST Temperature 37.2 02/08/2019 1:34 PM C (99 EST F) Respiratory Rate 20 02/08/2019 1:34 PM EST Oxygen Saturation 98% 02/08/2019 1:34 PM EST Inhaled Oxygen Concentration - - Weight 70.2 kg (154 lb 12.8 oz) 02/08/2019 1:34 PM EST Height 157.5 cm (5' 2") 02/08/2019 1:34 PM EST Body Mass Index 28.31 02/08/2019 1:34 PM EST documented in this encounter Patient Instructions Patient InstructionsSonal Loving MD - 02/08/2019 1:20 PM ESTYour stopped your prior Duloxetine dose due to diarrhea. We discussed options. You opted to try a lower dose of Duloxetine: Start 20 mg daily For smoking cessation, I sent in the lowest dose nicoderm patch. Please follow up in 3-4 weeks for anxiety documented in this encounter Progress Notes Sonal Loving MD - 02/08/2019 1:20 PM EST Nursing Notes: Dunia Perla LPN 02/08/2019 1:41 PM Signed Chief Complaint Patient presents with Anxiety anxiety getting worse Nicotine Dependence wants to do patch [facility] Winder: Dr Gore, [facility] Endocrinogist: Dr Sandoval PATIENT: Keesha Kay : 1965 DATE OF SERVICE: 02/08/2019 SUBJECTIVE: Keesha Kay is a 53-y.o. female who presents for follow up of of anxiety. I previously prescribed Duloxetine. She quit smoking for 6 months. Her anxiety picked up 2 months ago. She started smoking again 1 week ago, 1ppd. She stopped duloxetine due to diarrhea. She saw Dr Sandoval for her thyroid. He gave her a med for thyroid and anxiety, but stopped it. No help. Last vist was within 3 months She complains of psychomotor agitation. Onset was approximately several months ago, gradually worsening since that time. She denies current suicidal and homicidal plan or intent. Possible organic causes contributing are: Lupus, prior anxiety, fibromyalgia. Previous treatment includes Bupropion Hydrochloride/ Wellbutrin, Escitalopram Oxalate/ Lexapro. She complains of the following side effects from the treatment: diarrhea. Lab Results Component Value Date TSH 5.02 [...] Dr Damon COPD (chronic obstructive pulmonary disease) ([facility]) 03/17/2017 DDD (degenerative disc disease), lumbar MRI 08/2013 Environmental allergies fall, winter Hypothyroidism Lupus ([facility]) 2012 Dr. 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 duloxetine (CYMBALTA) 20 MG Oral CAPSULE ENTERIC COATED PARTICLES Take 1 Cap by mouth DAILY. fluticasone (FLONASE) 50 MCG/ACT Nasal Suspension instill 2 sprays IN NOSE DAILY hydroxychloroquine (PLAQUENIL) 200 MG Oral Tab Take 2 Tabs by mouth DAILY. ibuprofen (MOTRIN) 600 MG Oral Tab take 1 tablet daily if needed for severe pain levothyroxine (SYNTHROID) 125 MCG Oral Tab take 1 tablet by mouth once daily BEFORE BREAKFAST nicotine transdermal patch-daily (NICODERM CQ) 7 MG/24HR Transdermal PATCH [address] 1 Patch onto skin DAILY. RA ALLERGY RELIEF 180 MG Oral Tab [...] file Gets together: Not on file Attends mormonism service: Not on file Active member of [...] for abdominal pain and no diarrhea now. BEHAVIORAL/PSYCH: positive for anxiety. No suicidal ideation OBJECTIVE: BP 110/68 (BP Location: Right arm, Patient Position: Sitting) | Pulse 98 | Temp 99 F (37.2 C) (Tympanic) | Resp 20 | Ht 5' 2" (1.575 m) | Wt 154 lb 12.8 oz (70.2 kg) | SpO2 98% | BMI 28.31 kg/m Physical Examination: General appearance - alert, [...] PLAN: ICD-9-CM ICD-10-CM 1. Anxiety 300.00 F41.9 duloxetine (CYMBALTA) 20 MG Oral CAPSULE ENTERIC COATED PARTICLES 2. Fibromyalgia, secondary 729.1 M79.7 duloxetine (CYMBALTA) 20 MG Oral CAPSULE ENTERIC COATED PARTICLES 3. Stress V62.89 F43.9 4. Tobacco use 305.1 Z72.0 nicotine transdermal patch-daily (NICODERM CQ) 7 MG/ 24HR Transdermal PATCH 24 HR Patient liked duloxetine, except for the diarrhea. She would like to try a lower dose rather quintero a new med. She would also like the lowest dose nicoderm patch to quit smoking again. We called to obtain her last note and laboratory tests from Dr Sandoval. Patient Instructions Your stopped your prior Duloxetine dose due to diarrhea. We discussed options. You opted to try a lower dose of Duloxetine: Start 20 mg daily For smoking cessation, I sent in the lowest dose nicoderm patch. Please follow up in 3-4 weeks for anxiety Author: Sonal Loving MD 02/08/2019 16:03 documented in this encounter Plan of Treatment Date Type Specialty Care Team Description 02/22/2019 Ancillary Procedure Radiology 03/04/2019 Office Visit [facility] Sonal Loving MD [address] [place] [address] [phone] Health Maintenance Due Date Last Done Comments ZOSTER IMMUNIZATION SERIES 2014 (1 of 2) MAMMOGRAM (SCREENING) 10/16/2018 10/16/2017, 03/15/2016, 09/12/2014, Additional history exists DIABETES SCREENING 04/13/2019 04/13/2018, 12/05/2017, 07/28/2015, Additional history exists COLONOSCOPY SCREENING 06/10/2019 06/09/2014, 06/09/2014, 06/09/2014 DEPRESSION SCREENING 02/09/2020 [...] an individualized treatment (COPD) goal for Keesha Kay: Quit smoking immediately! Your provider has information [...] Summaries. Take all prescribed medications as Self-management Sonal Comer MD directed Note: This is an individualized [...] Diagnosis Anxiety - Primary Anxiety state, unspecified Fibromyalgia, secondary Mylagia and myositis, unspecified Stress Other psychological or physical stress, not elsewhere classified Tobacco use Tobacco use disorder documented in this encounter Insurance Payer Benefit Plan / Subscriber ID Effective Dates Phone Address Type Group [employer] xxxxxxxxxxxx 2018-Present [employer] Guarantor Name Account Type Relation to Date of Phone Billing Patient Address Keesha Kay Personal/Family 1965 [address] (Home) [place], [place] [phone] (Work) documented as of this encounter
[2019-04-05 07:16] VITALS: BP 119/78
[2019-04-05] MEDS ORDERED: Albuterol 2.5 MG/3 ML NEB.SOL* (0.083%) INH ONE (07:37)
--- NOTE | 2019-04-05 07:42 | UC ---
Respiratory Complaint HPI - HPI Summary HPI Summary: 54-year-old woman comes in with a chief complaint of upper respiratory tract bronchitis infection symptoms for one week. She's been having cough and chest congestion that she can't get up. She does have COPD and she states this feels like bronchitis. She's been wheezing more she's been using her inhaler more frequently. This morning when she woke up she had some left-sided chest pain left lower chest. Reports about a 3 out of 10 in pretty constant. Does not radiate she's not nauseous is not sweaty. She found that when she raises her arms up takes deep breath the pain gets worse. Patient is a smoker. No edema. Patient is on Plaquenil and therefore is potentially immunocompromised. - History of Current Complaint Chief Complaint: UCGeneralIllness Stated Complaint: WHEEZY COUGH CHEST Time Seen by Provider: 04/05/19 07:19 Hx Last Menstrual Period: n/a Pain Intensity: 3 - Allergies/Home Medications Allergies/Adverse Reactions: Allergies Allergy/AdvReac Type Severity Reaction Status Date / Time codeine AdvReac Intermediate Vomiting Verified 04/05/19 07:16 Penicillins AdvReac Intermediate Nausea Verified 04/05/19 07:16 seasonal Allergy Congestion Uncoded 04/05/19 07:16 PMH/Surg Hx/FS Hx/Imm Hx Previously Healthy: Yes - LUPUS Endocrine History: Hypothyroidism Respiratory History: COPD - Surgical History Surgical History: Yes Surgery Procedure, Year, and Place: APPENDECTOMY; 1983; CYST REMOVED FROM OVARY , ; TUBAL LIGATION, 1989. double carpal tunnel repair 09/19/14 - Family History Known Family History: Positive: Cardiac Disease, Hypertension, Other - RA Negative: Diabetes, Respiratory Disease - Social History Alcohol Use: Rare Alcohol Amount: 6 PER MONTH Substance Use Type: Excessive Caffeine Substance Use Comment - Amount & Last Used: coffee 6 cups /day Smoking Status (MU): Heavy Every Day Tobacco Smoker Type: Cigarettes Amount Used/How Often: 1 pp 2 weeks Length of Time of Smoking/Using Tobacco: 38 Years Have You Smoked in the Last Year: Yes Household Exposure Type: Cigarettes - Immunization History Most Recent Influenza Vaccination: no Vaccination Up to Date: No Review of Systems All Other Systems Reviewed And Are Negative: Yes Constitutional: Positive: Other - see hpi Skin: Positive: Negative Eyes: Positive: Negative ENT: Positive: Other - see hpi Respiratory: Positive: Shortness Of Breath, Cough, Other - see hpi Cardiovascular: Positive: Chest Pain - see hpi Gastrointestinal: Positive: Negative Motor: Positive: Negative Neurovascular: Positive: Negative Musculoskeletal: Positive: Negative Neurological: Positive: Negative Psychological: Positive: Negative Is Patient Immunocompromised?: Yes - on Plaquenil. Physical Exam Triage Information Reviewed: Yes Appearance: No Pain Distress, Well-Nourished, Ill-Appearing - mild Vital Signs: Initial Vital Signs Temp 97.7 F 04/05/19 07:11 Pulse 91 04/05/19 07:11 Resp 18 04/05/19 07:11 BP 119/78 04/05/19 07:11 Pulse Ox 97 04/05/19 07:11 Vital Signs Reviewed: Yes Eye Exam: Normal ENT: Positive: Pharynx normal, TMs normal Neck: Positive: Supple Respiratory: Positive: Lungs clear, Normal breath sounds, No respiratory distress, No accessory muscle use Cardiovascular: Positive: RRR Musculoskeletal: Positive: Strength Intact, ROM Intact Neurological: Positive: Alert, Muscle Tone Normal Psychological: Positive: Age Appropriate Behavior Skin Exam: Normal Diagnostics - EKG Cardiac Rate: NL - at 0740 Cardiac Rhythm: Sinus: Normal - 83bpm Ectopy: None ST Segment: Normal Respiratory Course/Dx - Course Course Of Treatment: Business Support Coordinator: Mandeep Trujillo Daniel ([id number]) Finishing Machine Tender: BRANNON ( BRANNON) Report Date: 04/05/2019 07:53:00 Report Status: Final ====== Start of Report Content Patient Name: ROSE SEALS Medical Record#: [id number] Ordering Physician: Bola Payan MD Acct.#: [id number] : Age: 54 Sex: F Location: [facility] Exam Date: 04/05/19719 ADM Status: REG ER Order Information: CHEST PA LAT 2 VWS Accession Number: [id number] CPT: 44271 HISTORY: rt chest pain COMPARISONS: January 04, 2016 VIEWS: 4: Frontal dual-energy and lateral views of the chest. FINDINGS: CARDIOMEDIASTINAL SILHOUETTE: The cardiomediastinal silhouette is normal. MODESTO: The modesto are normal. PLEURA: The costophrenic angles are sharp. No pleural abnormalities are noted. LUNG PARENCHYMA: There is hyperinflation with flattening of the diaphragm and expansion of the AP diameter of the chest. ABDOMEN: The upper abdomen is clear. There is no subphrenic gas. BONES AND SOFT TISSUES: No bone or soft tissue abnormalities are noted. OTHER: None. IMPRESSION : HYPERINFLATION, CONSISTENT WITH COPD. NO ACTIVE CARDIOPULMONARY DISEASE. R1NF Preliminary Imaging Read R1NF <Electronically signed by Mandeep Trujillo MD in OV> 04/05/19748 Dictated By: Mandeep Trujillo MD Dictated Date/Time: 04/05/19748 Transcribed Date/Time: 04/05/19748 Copy to: CC:Sonal Loving MD; Bola Payan MD Imaging - [facility] Imaging - [place] [facility] [address] [address] ph ([phone]) ph ) ph ([phone]) End of Report Content I do not see any ischemic changes on the EKG. I discussed the EKG and the chest x-ray with the patient. Patient reports that doxycycline usually works she has bronchitis and would like to be on doxycycline at this time. Also will treat with prednisone. Discussed that if the chest pain persisted or worsened or there was any concern of a cardiac cause of chest pain she should go to the emergency department. Otherwise she'll follow-up with her primary care doctor. - Differential Dx/Diagnosis Provider Diagnosis: COPD exacerbation, Bronchitis, Left-sided chest pain Discharge ED - Sign-Out/Discharge Documenting (check all that apply): Patient Departure All imaging exams completed and their final reports reviewed: Yes - Discharge Plan Condition: Stable Disposition: HOME Prescriptions: DOXYcycline CAP(*) [DOXYcycline 100MG CAP(*)] 100 mg PO BID #20 cap predniSONE [Prednisone 20 MG TAB] 40 mg PO DAILY #10 tablet Patient Education Materials: Chest Pain (ED), Acute Bronchitis (ED), COPD ( Chronic Obstructive Pulmonary Disease) (ED) Referrals: Sonal Loving MD [Primary Care Provider] - Additional Instructions: FOLLOW UP WITH YOUR DOCTOR IF NOT COMPLETELY IMPROVED. GET REEVALUATED SOONER IF NOT IMPROVING OR WORSE OR ANY QUESTIONS OR CONCERNS. - Billing Disposition and Condition Condition: STABLE Disposition: Home
== END 2019-04-05 08:11 | disposition home or self-care (01) ==
LOC: UCCORT 07:02
DX: J44.0 Chronic obstructive pulmonary disease with (acute) lower respiratory infection (principal); J20.9 Acute bronchitis, unspecified; J44.1 Chronic obstructive pulmonary disease with (acute) exacerbation; R07.89 Other chest pain; M32.9 Systemic lupus erythematosus, unspecified; F17.210 Nicotine dependence, cigarettes, uncomplicated; Z88.5 Allergy status to narcotic agent; Z88.0 Allergy status to penicillin; Z91.09 Other allergy status, other than to drugs and biological substances
CPT/HCPCS: 71046; 93005; 99212; G0463

== ENCOUNTER 2019-06-06 12:37 | Emergency (ER) | payer BC ==
[2019-06-06 15:13] VITALS: BP 111/66
--- NOTE | 2019-06-06 15:30 | UC ---
Respiratory Complaint HPI - HPI Summary HPI Summary: 54 yo woman, with hx of smoking, asthma and lupus, who comes in with 8 days of cough. She tries to wait this out, but ends up taking antibiotics and steroids about 3 or 4 times per year. Using albuterol about 4 times per day, continues to cough and feel some shortness of breath. Uses spiriva daily. No use of steroid inhaler. - History of Current Complaint Chief Complaint: UCGeneralIllness Stated Complaint: COUGH Time Seen by Provider: 06/06/19 15:21 Hx Obtained From: Patient Hx Last Menstrual Period: n/a Onset/Duration: Gradual Onset, Lasting Days Timing: Constant Severity Initially: Mild Severity Currently: Moderate Pain Intensity: 0 Character: Cough: Nonproductive Aggravating Factors: Exertion, Deep Breaths Alleviating Factors: Bronchodilator, Upright Position Associated Signs And Symptoms: Positive: Dyspnea, Wheezing. Negative: Fever, URI, Nasal Congestion, Hoarseness, Sinus Discomfort - Risk Factors Pulmonary Embolism Risk Factors: Smoking Cardiac Risk Factors: Smoking Pseudomonas Risk Factors: Negative Tuberculosis Risk Factors: Negative - Allergies/Home Medications Allergies/Adverse Reactions: Allergies Allergy/AdvReac Type Severity Reaction Status Date / Time codeine AdvReac Intermediate Vomiting Verified 06/06/19 15:09 Penicillins AdvReac Intermediate Nausea Verified 06/06/19 15:09 seasonal Allergy Congestion Uncoded 06/06/19 15:09 Home Medications: Home Medications Hydroxychloroquine TAB* [Plaquenil TAB*] 200 mg PO BID 05/09/14 [History Confirmed 06/06/19] Fexofenadine (NF) [Cherelle 180 (NF)] 180 mg PO QAM PRN 09/12/14 [History Confirmed 06/06/19] Fluticasone NASAL SPRAY 50MCG* [Flonase NASAL SPRAY 50MCG*] 2 spray BOTH NARES QAM 09/12/14 [History Confirmed 06/06/19] Levothyroxine Sodium [Synthroid] 125 mcg PO DAILY 05/19/16 [History Confirmed ] Albuterol HFA INHALER* [Ventolin HFA Inhaler*] 1 puff INH Q6H PRN #1 mdi [Rx Confirmed 06/06/19] Albuterol 2.5MG/3ML (0.083%)* [Ventolin 2.5 MG/3 ML NEB.PRAKASH*] 2.5 mg INH Q4H 09/18 [History Confirmed 06/06/19] DOXYcycline CAP(*) [DOXYcycline 100MG CAP(*)] 100 mg PO BID #20 cap 06/06/19 [Rx ] predniSONE [Prednisone 20 MG TAB] 40 mg PO DAILY #10 tablet 06/06/19 [Rx] PMH/Surg Hx/FS Hx/Imm Hx - Additional Past Medical History Additional PMH: lupus Previously Healthy: Yes Endocrine History: Hypothyroidism Respiratory History: Asthma, Bronchitis, Other - smoker - Surgical History Surgical History: Yes Surgery Procedure, Year, and Place: APPENDECTOMY; 1983;. CYST REMOVED FROM OVARY,. TUBAL LIGATION, 1989. 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 Negative: Fever Skin: Positive: Negative Eyes: Positive: Negative ENT: Negative: Sore Throat Respiratory: Positive: Shortness Of Breath, Cough Cardiovascular: Negative: Palpitations, Chest Pain Gastrointestinal: Positive: Negative Genitourinary: Positive: Negative Motor: Positive: Negative Neurovascular: Positive: Negative Musculoskeletal: Positive: Negative Neurological/Mental Status: Positive: Negative Psychological: Positive: Negative Is Patient Immunocompromised?: Yes - on plaquenil Physical Exam Triage Information Reviewed: Yes Appearance: Ill-Appearing - looks pale and mildly unable, speaks easily and in full sentences Vital Signs: Initial Vital Signs Temp 99.3 F 06/06/19 15:10 Pulse 92 06/06/19 15:10 Resp 15 06/06/19 15:10 BP 111/66 06/06/19 15:10 Pulse Ox 97 06/06/19 15:10 Eye Exam: Normal ENT: Positive: Pharynx normal Neck: Positive: Supple, Nontender, No Lymphadenopathy Respiratory: Positive: No respiratory distress, Decreased breath sounds, Wheezing. Negative: Crackles, Rhonchi Cardiovascular: Positive: RRR, No Murmur Musculoskeletal Exam: Normal Neurological Exam: Normal Psychological Exam: Normal Skin Exam: Normal Respiratory Course/Dx - Course Course Of Treatment: doxycycline and prednisone for treatment of bronchitis --sometimes she only needs 1-2 days of prednisone. she finds that she has persistent sx until an antibiotic is used. - Differential Dx/Diagnosis Differential Diagnosis/HQI/PQRI: Asthma, Bronchitis, Influenza, Laryngitis, Lower Resp Infection Provider Diagnosis: Bronchitis Discharge ED - Sign-Out/Discharge Documenting (check all that apply): Patient Departure All imaging exams completed and their final reports reviewed: No Studies - Discharge Plan Condition: Stable Disposition: HOME Prescriptions: DOXYcycline CAP(*) [DOXYcycline 100MG CAP(*)] 100 mg PO BID #20 cap predniSONE [Prednisone 20 MG TAB] 40 mg PO DAILY #10 tablet Patient Education Materials: Acute Bronchitis (ED) Referrals: Sonal Loving MD [Primary Care Provider] - Additional Instructions: Take the full course of antibiotics given. take prednisone for 2 to 5 days--you can stop as your wheezing improves. Follow up for re-evaluation if you develop fever or worsening shortness of breath. - Billing Disposition and Condition Condition: STABLE Disposition: Home
== END 2019-06-06 15:43 | disposition home or self-care (01) ==
LOC: UCCORT 12:37
DX: J40 Bronchitis, not specified as acute or chronic (principal); J45.909 Unspecified asthma, uncomplicated; E03.9 Hypothyroidism, unspecified; R53.83 Other fatigue; Z88.0 Allergy status to penicillin; Z88.5 Allergy status to narcotic agent; Z91.09 Other allergy status, other than to drugs and biological substances; Z79.890 Hormone replacement therapy; F17.210 Nicotine dependence, cigarettes, uncomplicated; Z79.52 Long term (current) use of systemic steroids
CPT/HCPCS: 99212; G0463